=== PATIENT | female | born 1935 | race Caucasian/White ===

== ENCOUNTER 2020-12-28 13:31 | Outpatient (CLI) | payer MEDICARE, SELFPAY ==
[2020-12-28 15:53] LABS: Basophils Percent Auto 0.6 % (0.2-1.2); Eosinophils Absolute Auto 0.1 K/mm3 (0-0.3); Eosinophils Percent Auto 1.7 % (0-4.4); Hematocrit 41.3 % (37.0-47.0); Hemoglobin 13.1 g/dL (12.0-15.0); Immature Granulocyte Absolute 0.02 K/mm3 (0.00-0.031); Immature Granulocyte Percent A 0.3 % (0-0.5); Lymphocytes Percent Auto 24.7 % (18.3-44.2); Mean Corpuscular HGB Conc 31.7 g/dl (32-36); Mean Corpuscular Hemoglobin 30.3 pg (26-34); Mean Corpuscular Volume 95.6 fl (80-100); Mean Platelet Volume 9.9 fl (7.4-10.4); Monocytes Absolute Auto 0.6 K/mm3 (0.1-0.6); Monocytes Percent Auto 9.1 % (2.6-8.5); Neutrophils Absolute Auto 4.4 K/mm3 (1.3-6.7); Neutrophils Percent Auto 63.6 % (45.5-73.1); Platelet Count Result 245 k/mm3 (150-375); Red Blood Count 4.32 M/mm3 (4.2-5.4); Red Cell Distribution Width 13.9 % (11.5-14.5); White Blood Count 6.9 K/mm3 (4.5-10.0)
[2020-12-28 16:05] LABS: Alanine Aminotransferase 17 U/L (4-35); Albumin Level 4.4 g/dL (3.5-5.1); Alkaline Phosphatase 120 U/L (38-126); Anion Gap 8 mmol/L (8-16); Aspartate Amino Transferase 27 U/L (14-36); Bilirubin,Total 0.9 mg/dL (0.2-1.3); Blood Urea Nitrogen 15 mg/dL (7-17); Carbon Dioxide 32 mmol/L (22-30); Chloride 101 mmol/L (98-107); Estimated Glomerular Filt Rate > 60; Glucose 103 mg/dL (65-110); Potassium 3.8 mmol/L (3.4-5.0); Prothrombin Time 12.7 Seconds (11.1-14.7); Sodium 141 mmol/L (137-145)
[2020-12-28 16:06] LABS: Partial Thromboplastin Time 27.4 SECONDS (22.3-36.8)
== END 2020-12-28 13:32 | disposition home or self-care (01) ==
LOC: ANHSURGERY 13:40
PROVIDERS: PCP Family Medicine; Visit Provider Urology
DX: N99.3 Prolapse of vaginal vault after hysterectomy (principal); Z01.818 Encounter for other preprocedural examination
CPT/HCPCS: 36415; 80053; 85025; 85610; 85730; 86850; 86900; 86901; 87086

== ENCOUNTER 2021-01-04 00:05 | Day surgery (SDC) | payer MEDICARE, SELFPAY ==
[2020-12-28 14:21] VITALS: BP 147/72; PULSE 73; RESP 18; TEMP 37.1; O2SAT 97; BMI 27.8
--- NOTE | 2020-12-29 14:16 | P.HP_ITS ---
H&P: HPI History of Present Illness Date/Time: 12/29/20 14:16 vaginal vault prolapse and ANA MARIA due to ISD Chief Complaint: POP/ISD Review of Systems Review of Systems: All systems reviewed & are unremarkable except as noted in HPI and below [facility] Family History Family History (Updated 12/29/20 @ 14:19 by Vito Lock MD) Other Diabetes mellitus Social History Social History Smoking packs per day: 0.5 Smoking cigarettes per day: 10.0 Years smoked: 2 Smoking pack-years: 1.00 Smoking status: Former smoker Tobacco type: cigarettes Smoking end date: 08/31/1959 Substance use: never Spiritual care concerns: No Meds Home Medications and Allergies Home Medications Medication Instructions Recorded Confirmed Type Ca carb-D3-mag zu-tcm-dvdw-Zn 1 tablet PO BID 12/28/20 12/28/20 History [Caltrate + D3 Plus Minerals] ascorbic acid (vitamin C) 500 mg PO DAILY 12/28/20 12/28/20 History biotin 10,000 mcg PO DAILY 12/28/20 12/28/20 History fluocinonide 3 applic TOPICAL DAILY PRN 12/28/20 12/28/20 History levothyroxine 75 mcg PO QAM 12/28/20 12/28/20 History joratmgxzqqj-tqnwkase-dgtikq 1 tablet PO DAILY 12/28/20 12/28/20 History [Centrum Silver] naproxen sodium [Aleve] 220 mg PO BID PRN 12/28/20 12/28/20 History Allergies Allergy/AdvReac Type Severity Reaction Status Date / Time azithromycin AdvReac Nausea and Verified 12/28/20 14:06 Vomiting Vital Signs Vital Signs - 24 hr 12/28/20 14:21 Temperature 98.8 F Pulse Rate 73 Respiratory Rate 18 Blood Pressure 147/72 H Pulse Oximetry 97 Exam Const: General: cooperative HENMT: Head: normal to inspection Eyes: General: appearance normal, both eyes and all related structures Resp: Effort & Inspection: normal respiratory effort and able to speak in complete sentences : Bimanual Exam- Adnexa, other: vaginal apex descent (+4) Skin: General skin exam: normal color Assessment and Plan Assessment and plan (1) Prolapse of vaginal vault after hysterectomy: Code(s): N99.3 - Prolapse of vaginal vault after hysterectomy Status: Acute Assessment and Plan: colpocleisis (2) Intrinsic sphincter deficiency (ISD): Code(s): N36.42 - Intrinsic sphincter deficiency (ISD) Status: Acute Assessment and Plan: Bulking agent
[2021-01-04] VITALS (9 sets, daily range): BP systolic 97–139; BP diastolic 46–94; PULSE 65–73; RESP 15–18; TEMP 35.9–37.9; O2SAT 97–100
[2021-01-04] MEDS: LACTATED RINGERS 1,000 ML 30 ML IV CONT ×2 (07:15→09:32)
--- NOTE | 2021-01-04 07:18 | WPDHPUPDATE1 ---
History and Physical Update Update Date/Time: 01/04/21 07:18 History and Physical has been reviewed, including an updated exam of the patient. There are NO changes in the patient's condition. Risks, benefits, and alternatives have been discussed and questions answered. Patient agrees to proceed with procedure.
--- NOTE | 2021-01-04 07:45 | P.PNAN_ITS ---
Anes - Initial Pre Proc Eval Procedure: Operation Date: 01/04/21 08:15 Proposed Procedures p Colpocleisis - Vito Lock MD s Cystoscopy with Bulking Agent Bulkamid - Vito Lock MD Date/Time: 01/04/21 07:45 Surgeon: Vito Lock MD Pre Op Diagnosis: prolapse vaginal vault after hysterectomy Patient Data Age: 85 Gender: F Height: 1.64 m Weight: 72.4 kg Last Vital Signs Temp 35.9 C L 01/04/21 06:40 Pulse 73 01/04/21 06:40 Resp 18 01/04/21 06:40 BP 114/78 01/04/21 06:40 Pulse Ox 100 01/04/21 06:40 Allergies Allergy/AdvReac Type Severity Reaction Status Date / Time azithromycin AdvReac Nausea and Verified 01/04/21 07:27 Vomiting Home Medications Medication Instructions Recorded Confirmed Type Ca carb-D3-mag eb-llz-bicu-Zn 1 tablet PO BID 12/28/20 01/04/21 History [Caltrate + D3 Plus Minerals] ascorbic acid (vitamin C) 500 mg PO DAILY 12/28/20 01/04/21 History biotin 10,000 mcg PO DAILY 12/28/20 01/04/21 History fluocinonide 3 applic TOPICAL DAILY PRN 12/28/20 01/04/21 History levothyroxine 75 mcg PO QAM 12/28/20 01/04/21 History vnfnyjuginlh-nvxfqrch-mxafwk 1 tablet PO DAILY 12/28/20 01/04/21 History [Centrum Silver] naproxen sodium [Aleve] 220 mg PO BID PRN 12/28/20 01/04/21 History Patient hx anesthesia problems: none Family hx anesthesia problems: none Results Review: All pre-operative results and documents have been reviewed as part of the pre-operative evaluation. [facility], [facility] Surgical History Surgical History (Updated 01/04/21 @ 07:46 by Cristobal Stewart MD) H/O: hysterectomy Family History Family History Other Diabetes mellitus Social History Social History Smoking packs per day: 0.5 Smoking cigarettes per day: 10.0 Years smoked: 2 Smoking pack-years: 1.00 Smoking status: Former smoker Tobacco type: cigarettes Smoking end date: 08/31/1959 Substance use: never Living arrangements: alone Spiritual care concerns: No Anes - Eval Final PreProcedure Day of Procedure 01/04/21 07:45 Patient weight: overweight Heart: regular rate and rhythm Lungs: clear to auscultation Airway: Mallampati scale class II and other (extensive dental work - implants) Neurological: alert and oriented Last oral intake: >/= 8 hours ASA classification: II Emergent: no Anesthesia type and monitoring: general LMA and standard monitoring Results Review: All pre-operative results and documents have been reviewed as part of the pre-operative evaluation. Informed Consent: The patient's anesthetic plan and its attendant risks and benefits were discussed with the patient/family/POA. Questions were solicited and answers provided to the satisfaction of the patient/family/POA.
[2021-01-04] MEDS: ceFAZolin 2 GM/D5W 50 ML 2 GM/50 ML BAG IVPB (08:16)
[2021-01-04] MEDS: LIDO 1%/EPINEPHRINE 1:100,000 50 ML VIAL 20 ML INFILTRATE (09:01)
--- NOTE | 2021-01-04 09:32 | W.PM.PROC2 ---
Procedure Note - Detailed Date of Procedure 01/04/21 Pre-op Diagnosis prolapse vaginal vault after hysterectomy Female perineal laxity Intrinsic sphincter deficiency Post-op Diagnosis same Procedure Performed Colpocleisis Perineorrhaphy Cystoscopy Suburethral injection of implant material Surgeon Vito Lock MD Anesthesia general Indications This is a 1 with significant vaginal vault prolapse post hysterectomy as well as stress incontinence due to intrinsic sphincter deficiency. She is here today for the above. She understands risks of bleeding, infection, recurrence, damage to surrounding organs, damage to the bladder or rectum, postoperative voiding dysfunction including incontinence and retention, need for ancillary procedures, inability to have penetrative intercourse. She agrees to proceed Findings Vaginal vault prolapse, intrinsic sphincter deficiency Description of Procedure She has correctly identified. Informed consent obtained. From the operating room. She was given general anesthesia. She was placed in dorsal lithotomy position. She was given appropriate perioperative antibiotics. She was prepped and draped in a sterile fashion. Time-out performed. I placed Santamaria catheter. I placed a [place] retractor. I grasped the vaginal vault without clamps. I anesthetized the posterior vaginal wall. I removed a rectangle shaped area of tissue leaving underlying fascial structures. I did the same on the anterior vaginal wall. I then performed a plication colpocleisis. I used 0 Vicryl sutures to imbricate and pursestring the vaginal wall. I then closed mucosa to mucosa with interrupted horizontal mattress of 0 Vicryl. This resulted in excellent for support of the vaginal vault. I then marked out a altagracia-shaped area of skin on the perineum. I removed this area of skin. I performed a perineorrhaphy with 0 Vicryl sutures. I used a 2-0 Vicryl to close the mucosa. There was excellent perineal support. There was intended on narrowing of the vagina. There was adequate hemostasis. I then performed cystoscopy. She had ugkm-cg-jxeyyqwb trabeculations. Ureteral orifices were seen to excrete clear yellow urine. There is no foreign body or damage to the bladder or urethra. There is no other abnormalities. Urethra is open consistent with intrinsic sphincter deficiency. I then injected my bulking agent circumferentially around the mid urethra. This resulted in excellent bulking effect. I did not replace the catheter. She was awakened and transferred to the PACU in stable Estimated Blood Loss 30 Drains No Packing No Pathology none sent Complications No immediate complications Condition stable Disposition PACU
--- NOTE | 2021-01-04 10:33 | PC.NURSE ---
This patient, Dora Lanza, was received from PACU on 01/04/21 at 1033. Patient/family oriented to unit policies and routines
[2021-01-04] MEDS: KCL 20 MEQ/D5/0.45% SOD CHL 1,000 ML 100 ML IV CONT (11:04)
[2021-01-05 00:15] VITALS: BP 97/45; PULSE 74; RESP 16; TEMP 37.2; O2SAT 96
[2021-01-05 03:55] VITALS: BP 110/54; PULSE 72; RESP 16; TEMP 37; O2SAT 97
[2021-01-05 07:40] VITALS: BP 104/60; PULSE 67; RESP 16; TEMP 37.3; O2SAT 98
[2021-01-05] MEDS: DOCUSATE SODIUM 100 MG CAPSULE PO (08:19)
[2021-01-05] MEDS: ENOXAPARIN 30 MG/0.3 ML SYRINGE SUB-Q (08:20)
[2021-01-05] MEDS: ACETAMINOPHEN 325 MG TABLET 650 MG PO (10:36)
--- NOTE | 2021-01-05 11:05 | WPDANESPN ---
Anes - Prog Note Post-Op Date/Time: 01/05/21 11:05 Cardiovascular status: normal Respiratory status: normal Airway patency: baseline Mental status: baseline Post-Op hydration status: normal Vital Signs: Last Vital Signs Temp 99.2 F 01/05/21 07:40 Pulse 67 01/05/21 07:40 Resp 16 01/05/21 07:40 BP 104/60 01/05/21 07:40 Pulse Ox 98 01/05/21 07:40 Pain Score (VAS): 2 I/O: Intake & Output 01/04/21 01/05/21 01/05/21 23:59 07:59 15:59 Intake Total 950 2320 1600 Output Total 1800 2475 1025 Balance -850 -155 575 Post-procedural complaints: none Patient Feedback: Patient satisfied with anesthetic care.
== END 2021-01-05 11:54 | disposition home or self-care (01) ==
LOC: ANHSURGERY 09:42 → ANHOB2 10:29
PROVIDERS: PCP Family Medicine; Visit Provider Urology
PROC: (CPT 57120; principal; 2021-01-04 08:15)
PROC: 3E0K8GC Introduction of Other Therapeutic Substance into Genitourinary Tract, Via Natural or Artificial Opening Endoscopic (ICD-10-PCS; CPT 57120; 2021-01-04 08:15)
DX: N99.3 Prolapse of vaginal vault after hysterectomy (principal); N36.42 Intrinsic sphincter deficiency (ISD); Z87.891 Personal history of nicotine dependence
CPT/HCPCS: 57120; 51715; 36415; 80053; 85025; 85610; 85730; 86850; 86900; 86901; 87086; 99199; A9270; J0690; J1650; J2405; J2704; J3010; J3480; J7030; J7120